=== PATIENT | male | born 1990 | race African-American/Black ===

== ENCOUNTER 2017-04-16 02:18 | Emergency (ER) | payer OTHER ==
[~2017-04-16] VITALS: Ht 182.9 cm; Wt 97.0 kg
[~2017-04-16 02:18] MED LIST: QUET50TA11
[2017-04-16] MEDS ORDERED: ACETAMINOPHEN 500MG TABLET PO ONE (07:45)
[2017-04-16 08:29] VITALS: BP 132/79
== END 2017-04-16 08:35 | disposition home or self-care (01) ==
LOC: ER 02:32
DX: R25.2 Cramp and spasm (principal); M70.8 Other soft tissue disorders related to use, overuse and pressure; Y93.89 Activity, other specified
CPT/HCPCS: 99283